=== PATIENT | male | born 1990 | race Caucasian/White ===

== ENCOUNTER 2017-09-02 20:33 | Emergency (ER) | payer OTHER ==
[~2017-09-02] VITALS: Ht 180.3 cm; Wt 83.9 kg
[2017-09-02] MEDS ORDERED: PERCOCET 5-3251 EACH PO (20:56)
[2017-09-02] MEDS ORDERED: ACETAMINOPHEN-1 EAC1 PO (22:50)
[2017-09-02] MEDS ORDERED: DOXYCYCLINE HY100 MG PO (22:50)
== END 2017-09-02 23:05 | disposition home or self-care (01) ==
LOC: ED 20:33
PROC: 0HQGXZZ Repair Left Hand Skin, External Approach (ICD-10-PCS; principal; 2017-09-02)
DX: S61.052A Open bite of left thumb without damage to nail, initial encounter (principal); F17.200 Nicotine dependence, unspecified, uncomplicated; Z88.0 Allergy status to penicillin; Z88.1 Allergy status to other antibiotic agents; Z88.6 Allergy status to analgesic agent; Z88.5 Allergy status to narcotic agent; Z88.8 Allergy status to other drugs, medicaments and biological substances; Z79.899 Other long term (current) drug therapy; W54.0XXA Bitten by dog, initial encounter
CPT/HCPCS: 12002; 99283

== ENCOUNTER 2020-11-19 16:06 | Emergency (ER) | payer BC ==
[~2020-11-19] VITALS: Ht 180.3 cm; Wt 70.3 kg
[~2020-11-19 16:06] MED LIST: ACETAMINOPHEN-1 EAC1 PO; DOXYCYCLINE HY100 MG PO; PERCOCET 5-3251 EACH PO
[2020-11-19] MEDS ORDERED: TRIAMCINOLONE A15 G1 (18:16)
[2020-11-19] MEDS ORDERED: CILOXAN5 ML OS (19:28)
== END 2020-11-19 19:51 | disposition home or self-care (01) ==
LOC: ED 16:06
DX: H00.014 Hordeolum externum left upper eyelid (principal); Z88.0 Allergy status to penicillin; Z88.8 Allergy status to other drugs, medicaments and biological substances; Z88.1 Allergy status to other antibiotic agents; Z88.6 Allergy status to analgesic agent; Z88.5 Allergy status to narcotic agent; Z79.899 Other long term (current) drug therapy
CPT/HCPCS: 99283